=== PATIENT | female | born 1995 | race Caucasian/White ===

== ENCOUNTER 2024-05-10 13:16 | Emergency (ER) | payer OTHER, SELFPAY ==
[2024-05-10 13:19] VITALS: BP 124/81
[2024-05-10 13:59] LABS: % Basophils 0.3 % (0-2); % Eosinophils 1.8 % (0-6); % Immature Granulocytes 0.3 % (0-0.5); % Lymphocytes 24.5 % (20.5-51.1); % Monocytes 5.7 % (1.7-9.3); % Neutrophils 67.4 % (42.2-75.2); Absolute Eosinophils 0.2 10^3/uL (0-0.7); Absolute Lymphocytes 2.5 10^3/uL (1.2-3.4); Absolute Monocytes 0.6 10^3/uL (0.1-0.6); Absolute Neutrophils 6.8 10^3/uL (1.4-6.5); Hematocrit 41.3 % (37.0-47.0); Hemoglobin 14.1 g/dL (12.0-16.0); Mean Corp Hgb Conc. 34.1 g/dL (33.0-37.0); Mean Corpuscular Volume 84.8 fL (81.0-99.0); Mean Platelet Volume 9.9 fL (7.4-10.4); Nucleated Red Blood Cells % 0 %; Platelet Count 347 10^3/uL (130-400); Red Blood Cell Count 4.87 10^6/uL (4.20-5.40); Red Cell Dist. Width 11.9 % (11.5-14.5); White Blood Cell Count 10.2 10^3/uL (4.8-10.8)
[2024-05-10 14:09] LABS: HCG, Serum Qualitative Screen Negative
[2024-05-10 14:13] LABS: ALT (SGPT) 35 U/L (0-35); AST (SGOT) 32 U/L (14-36); Albumin 4.9 g/dl (3.5-5.0); Alkaline Phosphatase 62 U/L (38-126); Blood Urea Nitrogen 13 mg/dl (7-17); Calcium 9.6 mg/dl (8.4-10.2); Carbon Dioxide 27 mmol/L (22-30); Chloride 103 mmol/L (98-107); Glucose 95 mg/dl (70-99); Potassium 4.1 mmol/L (3.5-5.1); Sodium 144 mmol/L (135-145); Total Bilirubin 0.6 mg/dl (0.2-1.3); eGFR > 60.00
[2024-05-10 14:22] VITALS: BMI 32.3
[2024-05-10 14:23] LABS: Troponin I < 0.012 ng/ml
[2024-05-10 14:25] VITALS: BP 118/62
[2024-05-10 15:00] VITALS: BP 111/71
--- NOTE | 2024-05-10 15:01 | ED.GENMED ---
History of Present Illness
General
Chief Complaint: Chest Pain
Time Seen by Provider: 05/10/24 14:29
History of Present Illness
History of Present Illness:
29-year-old female without significant past medical history presenting to the emergency department for chest pain. Patient reports few hours prior to arrival she was at work and had a stressful phone call. She then started to have left-sided
stabbing chest pain. She notes that she occasionally does get some chest pain from stress, however felt that this is worse than usual. Pain persisted, which prompted her to come to the hospital. Pain has improved since arrival. It is still
present. Denies difficulty breathing. Denies history of blood clot, recent travel, recent surgery, exogenous estrogen. Notes family history of cardiac disease, CHF and CVA, however denies personal history of cardiac disease. Denies abdominal
pain or GI symptoms. Denies fever or cough. Denies additional acute medical complaints.
Past History
Past History
ED Past Medical History: None
ED Past Surgical History:
Social History
Tobacco: Non-smoker
Alcohol: Occasional
Drug: None
Phy Exam
Physical Exam
Physical Exam:
General: Well-appearing, no clinical signs of dehydration, nontoxic and in no acute distress
HEENT: protecting airway
Neck: appears supple
CV: Normal heart rate, regular rhythm
Resp: No accessory muscle use, no increased work of breathing, lungs clear to auscultation bilaterally
Abd: Soft and non-distended, no tenderness to palpation
Extremities: No deformities, no swelling, no erythema
Neuro: alert, no focal neurologic deficit
: deferred
Rectal: deferred
Psych: Normal affect
Skin: Intact
Scores
Heart Score for Chest Pain Patients
STEMI patient?: No
History: Slightly or Non-Suspicious
ECG: Normal
Age: </= 45 years
Risk Factors: No Risk Factors
Troponin: </= Normal Limit
Heart Score for Chest Pain Patients: 0
Heart Score Risk: 2.5% MACE over next 6 weeks
Course
Orders/Labs/Results
Orders:
Orders
05/10/24 13:17
Electrocardiogram (*1) Urgent
Reason for Study: Chest Pain
EKG- Treatment ONCE
05/10/24 13:23
Test Result ONCE
05/10/24 13:35
Complete Blood Count/With Diff Urgent
Comprehensive Metabolic Panel Urgent
HCG, Serum Qualitative Screen Urgent
Troponin I Urgent
Abnormal Lab Results
05/10/24
13:35
Absolute Neuts (auto) 6.8 H 10^3/uL
(1.4-6.5)
05/10/24 13:35
05/10/24 13:35
Vital Signs
Initial and Last Documented VS:
Initial Vital Signs
Temp Pulse Resp BP Pulse Ox
98.0 F 86 18 124/81 100
05/10/24 13:19 05/10/24 13:19 05/10/24 13:19 05/10/24 13:19 05/10/24 13:19
Last Documented Vital Signs
Temp Pulse Resp BP Pulse Ox
98.0 F 91 12 111/71 98
05/10/24 13:19 05/10/24 15:15 05/10/24 15:15 05/10/24 15:00 05/10/24 15:15
MDM/Problems Addressed
MDM/Problems Addressed:
29-year-old female without past medical history presenting for episode of chest pain. Vital signs on arrival are normal.
On exam patient is well-appearing, no acute distress or discomfort. EKG is nonischemic. Patient without any cardiac risk factors. Unremarkable cardiac and pulmonary exam. Patient is PERC negative without concern for PE. Patient had screening
laboratory analysis prior to my assessment, negative troponin. At this time patient is low risk by heart score. Do not suspect ACS. Suspect stress related component. She is afebrile, nontoxic, no infectious symptoms, without concern for
infection. Remains hemodynamically stable in the emergency department. Feel stable for discharge. Advised outpatient follow-up with primary care doctor. Return precautions discussed and patient verbalized understanding
*EKG
Interpreted by ED Provider?: Yes
EKG Intrepretation Date: 05/10/24
EKG Intrepretation Time: 15:04
Interpretation: normal
Comparison EKG: no comparison EKG present
Heart Rate: 73
Rate: normal
Rhythm: sinus
Bedias: normal axis
Interval: normal interval
QRS Pattern: normal QRS
Ischemia: no ischemia
*Critical Care Note
Total Time (30-74mins, 75-104mins- exclusive of procedures): Not Applicable
ED Attending Note
-
Portions of this chart may have been created with voice recognition software.� Occasional wrong word or��sound alike� substitutions may have occurred due to the inherent limitations of voice recognition software.
Discharge Plan
Departure
Referrals:
Chhaya Moy CRNP [Family Provider] -
Interventions
Interventions:
*Risk Screen - Suicide Last Done: 05/10/24 13:19
*General Assessment Last Done: 05/10/24 13:19
*Neglect/Abuse Screening Last Done: 05/10/24 13:19
ED- Fall Risk Assessment Last Done: 05/10/24 14:28
*ED COVID-19 Vaccine History Last Done: 05/10/24 13:19
ED- Cardiac Assessment Last Done: 05/10/24 14:27
Discharge Date and Time
Print Language: SCOTTISH
== END 2024-05-10 15:39 | disposition home or self-care (01) ==
LOC: EMR 13:16
PROVIDERS: Emergency Medicine; EMERGENCY PHYSICIAN Student in an Organized Health Care Education/Training Program; FAMILY PHYSICIAN Nurse Practitioner Family
DX: R07.89 Other chest pain (principal)
CPT/HCPCS: 99284; 80053; 84484; 84703; 85025; 93005

== ENCOUNTER → 2024-11-14 13:22 | Outpatient (REF) | payer OTHER, SELFPAY | LOC: RAD 13:22 | PROVIDERS: ATTENDING PHYSICIAN Physician Assistant | DX: R10.9 Unspecified abdominal pain (principal); R35.0 Frequency of micturition; R10.2 Pelvic and perineal pain; R31.29 Other microscopic hematuria | CPT/HCPCS: 76770 ==